=== PATIENT | male | born 1970 | race Caucasian/White ===

== ENCOUNTER 2023-08-05 21:46 | Emergency (ER) | payer OTHER, SELFPAY ==
[2023-08-05] MEDS ORDERED: Promethazine HCl 25 MG/ML VIAL ONE (22:07)
[2023-08-05 22:29] LABS: Bilirubin Moderate (Negative); Blood, Urine Trace (Negative); Clarity Clear (Clear); Glucose, Urine (Dipstick) 500 mg/dL (Negative); Ketone, Urine > or equal to 80 mg/dL (Negative); Leukocyte Negative (Negative); Nitrite Negative (Negative); Protein, Urine (Dipstick) 30 mg/dL (Neg-Trace); Urobilinogen 0.2 mg/dL (Less than 2); pH, Urine 5.5 (5.0-9.0)
[2023-08-05 22:30] LABS: Specific Gravity, Urine 1.028 (1.002-1.036)
[2023-08-05 22:31] LABS: Bacteria/HPF None Seen HPF (None Seen); CAUTI Indications for Culture Dysuria,urgency,freq; RBC/HPF None Seen HPF (0-3); Squamous Epithelial None Seen HPF (0-3); WBC/HPF None Seen HPF (0-3)
[2023-08-05 22:32] LABS: Urine Culture Reflex No No
[2023-08-05 22:35] LABS: #Basophils 0.1 thou/uL (0.0-0.2); #Lymphocytes 2.2 thou/uL (1.20-3.40); #Monocytes 0.9 thou/uL (0.11-0.59); #Neutrophils 9.2 thou/uL (1.40-6.50); %Basophils 0.6 % (0.0-1.0); %Eosinophils 0.2 % (0.0-10.0); %Lymphocytes 17.5 % (21.0-51.0); %Monocytes 7.6 % (0.0-10.0); %Neutrophils 74.1 % (42.0-75.0); Hematocrit 49.6 % (42.0-52.0); Hemoglobin 16.6 g/dL (14.0-18.0); Mean Corpuscular HGB CONC 33.5 g/dL (32.0-36.0); Mean Corpuscular Volume 89.6 fl (78.0-98.0); Mean Platelet Volume 8.6 fL (7.4-10.4); Platelet Count 325 10x3/uL (130-400); RBC Distribution Width 11.3 % (11.5-14.5); Red Blood Cell (RBC) Count 5.53 mill/uL (4.70-6.10); White Blood Cell (WBC) Count 12.4 10x3/uL (4.8-10.8)
[2023-08-05 22:44] LABS: Troponin I Less than 0.010 ng/mL (< 0.028)
[2023-08-05 22:48] LABS: ALT (SGPT) 29 U/L (8-55); AST (SGOT) 20 U/L (5-34); Albumin 5.2 g/dL (3.5-5.0); Alkaline Phosphatase 130 U/L (40-110); Anion Gap 29 mmol/L (10-20); BUN (Urea Nitrogen) 20 mg/dL (8.4-25.7); Bilirubin, Total 0.4 mg/dL (0.2-1.2); Calc. Creatinine Clearance 0 mL/min (70-130); Calcium 9.6 mg/dL (7.8-10.44); Carbon Dioxide 11 mmol/L (22-29); Chloride 98 mmol/L (98-107); Estimated GFR 63; Glucose 204 mg/dL (70-105); Lipase 48 U/L (8-78); Potassium 4.2 mmol/L (3.5-5.1); Protein, Total 9.2 g/dL (6.0-8.3); Sodium 134 mmol/L (136-145)
[2023-08-05] MEDS ORDERED: Acetaminophen 500 MG TAB ONE (22:48)
[2023-08-05] MEDS ORDERED: INSULIN REGULAR IN 0.9 % NACL 100 UNITS/100 ML BAG ONE (23:08)
[2023-08-05] MEDS ORDERED: Dextrose 5 %-0.45 % NaCl 1,000 ML ONE (23:12)
== END 2023-08-05 23:31 | disposition short-term general hospital (02) ==
LOC: NAV ERS 21:46
DX: E11.10 Type 2 diabetes mellitus with ketoacidosis without coma (principal); E78.00 Pure hypercholesterolemia, unspecified; Z79.899 Other long term (current) drug therapy; Z79.84 Long term (current) use of oral hypoglycemic drugs
CPT/HCPCS: 36416; 80053; 81001; 83690; 84484; 85025; 87804; 93005; 94760; 96374; 96375; J1815; J2550; J7042

== ENCOUNTER 2024-02-19 11:36 | Emergency (ER) | payer OTHER, SELFPAY ==
[2024-02-19] MEDS ORDERED: Sodium Chloride 0.9% 1,000 ML ONE (12:13)
[2024-02-19] MEDS ORDERED: Ondansetron PF 4 MG/2 ML Vial ONE (12:13)
[2024-02-19 12:22] LABS: #Eosinphils 0.3 thou/uL (0.0-0.7); #Lymphocytes 1.4 thou/uL (1.20-3.40); #Monocytes 0.8 thou/uL (0.11-0.59); #Neutrophils 5.7 thou/uL (1.40-6.50); %Basophils 0.6 % (0.0-1.0); %Eosinophils 3.4 % (0.0-10.0); %Monocytes 9.5 % (0.0-10.0); %Neutrophils 69.4 % (42.0-75.0); Hematocrit 44.4 % (42.0-52.0); Hemoglobin 14.5 g/dL (14.0-18.0); Mean Corpuscular HGB CONC 32.7 g/dL (32.0-36.0); Mean Corpuscular Volume 88.9 fl (78.0-98.0); Mean Platelet Volume 9.4 fL (7.4-10.4); Platelet Count 228 10x3/uL (130-400); RBC Distribution Width 11.6 % (11.5-14.5); White Blood Cell (WBC) Count 8.1 10x3/uL (4.8-10.8)
[2024-02-19 12:32] LABS: ALT (SGPT) 47 U/L (8-55); AST (SGOT) 31 U/L (5-34); Albumin 4.1 g/dL (3.5-5.0); Alkaline Phosphatase 109 U/L (40-110); Anion Gap 16 mmol/L (10-20); BUN (Urea Nitrogen) 13 mg/dL (8.4-25.7); Bilirubin, Total 0.4 mg/dL (0.2-1.2); Calc. Creatinine Clearance 0 mL/min (70-130); Calcium 9.2 mg/dL (7.8-10.44); Carbon Dioxide 22 mmol/L (22-29); Chloride 104 mmol/L (98-107); Estimated GFR 103; Globulin 3.9 g/dL (2.4-3.5); Glucose 226 mg/dL (70-105); Lipase 75 U/L (8-78); Potassium 3.8 mmol/L (3.5-5.1); Sodium 138 mmol/L (136-145)
[2024-02-19 12:35] LABS: Base Excess-Venous 0.4 mmol/L (-2.0 to 3.0); Bicarbonate (HCO3v) 24.6 mmol/L (22.0-28.0); CO2 Tension (PvCO2) 37.4 mmHg (42.0-51.0); Calcium, Ionized 1.13 mmol/L (1.15-1.33); Chloride 108 mmol/L (98-107); Hemoglobin - Calc 16.2 g/dL (14.0-18.0); Sodium 140 mmol/L (138-145); T. Carbon Dioxide 25.7 mmol/L (22.0-28.0); vO2 Saturation-calc 92.9 % (60.0-85.0)
[2024-02-19 13:56] LABS: Bilirubin Negative (Negative); Blood, Urine Negative (Negative); Clarity Clear (Clear); Glucose, Urine (Dipstick) 250 mg/dL (Negative); Ketone, Urine 80 mg/dL (Negative); Leukocyte Negative (Negative); Nitrite Negative (Negative); Protein, Urine (Dipstick) Negative (Neg-Trace); Urobilinogen 0.2 mg/dL (Less than 2); pH, Urine 5.5 (5.0-9.0)
[2024-02-19 13:59] LABS: Specific Gravity, Urine 1.026 (1.002-1.036)
[2024-02-19 14:01] LABS: Bacteria/HPF Rare-Few HPF (None Seen); CAUTI Indications for Culture Dysuria,urgency,freq; RBC/HPF None Seen HPF (0-3); WBC/HPF 0-3 HPF (0-3)
[2024-02-19 14:02] LABS: Urine Culture Reflex No No
== END 2024-02-19 14:30 | disposition home or self-care (01) ==
LOC: NAV ERS 11:36
DX: R11.2 Nausea with vomiting, unspecified (principal); E11.9 Type 2 diabetes mellitus without complications; E78.5 Hyperlipidemia, unspecified; Z79.84 Long term (current) use of oral hypoglycemic drugs; Z79.899 Other long term (current) drug therapy; Z79.4 Long term (current) use of insulin
CPT/HCPCS: 36416; 71045; 80053; 81001; 82010; 82330; 82435; 82803; 83690; 84132; 84295; 85014; 85025; 96361; 96374; J2405; J7030

== ENCOUNTER 2024-06-15 12:13 | Outpatient (CLI) | payer OTHER | END 2024-06-15 12:14 | disposition home or self-care (01) | LOC: NAV RAD 12:13 | PROVIDERS: ATTEND Family Medicine | DX: M54.50 Low back pain, unspecified (principal); M15.9 Polyosteoarthritis, unspecified; M47.816 Spondylosis without myelopathy or radiculopathy, lumbar region; M85.88 Other specified disorders of bone density and structure, other site; M48.8X6 Other specified spondylopathies, lumbar region | CPT/HCPCS: 72100 ==